=== PATIENT | female | born 1930 | race Caucasian/White ===

== ENCOUNTER → 2018-09-07 | Outpatient (CLI) | payer MEDICARE ==
[~2018-09-07] MED LIST: ASPI81TA94 PO; ATOR10TA65 PO; ATOR20TA22 PO; ATOR20TA65 PO; BENZ100C4 PO; CHOL10005 PO; FLUT16SP19 NS; HYDR-4225 PO; LEVO25TA61 PO; MECL-205 PO; METO25TA93 PO; PNEU0.5D3 IM; TRIA-204 PO
== END ==
LOC: LAB 13:43
PROVIDERS: ATTEND Surgery
DX: C44.311 Basal cell carcinoma of skin of nose (principal)
CPT/HCPCS: 88305